=== PATIENT | female | born 1985 ===

== ENCOUNTER 2020-06-23 15:30 | Emergency (ER) | payer MEDICAID, MEDICARE ==
--- NOTE | 2020-06-23 16:38 | CR ---
HISTORY: Pain after fall on ice. COMPARISON: None available. FINDINGS: The right elbow is examined with AP and lateral views. There is no sign of fracture, dislocation, or joint effusion. The soft tissues are normal in appearance without sign of radio-opaque foreign body. No degenerative disease is seen. IMPRESSION: Normal right elbow. Dictated by Patel Tejeda MD @ Jun 23 2020 4:36PM Signed by Dr. Patel Tejeda @ Jun 23 2020 4:37PM
--- NOTE | 2020-06-23 16:40 | CR ---
Indication: Fell on ice, caught self with hand, bent thumb back and wrist. Technique: Right hand 3 views. Comparison: None. Findings: There is a subtle nondisplaced vertically oriented fracture of the ulnar aspect of the distal radius extending to the radiocarpal joint space, only seen on the oblique view. Normal alignment of the wrist. Joint spaces are well preserved. Mild soft tissue swelling about the wrist. Impression: 1. Acute nondisplaced vertically oriented fracture of the distal radius extending to the radiocarpal joint space. 2. Mild soft tissue swelling about the wrist. Dictated by Ava Vernon MD @ Jun 23 2020 4:34PM Signed by Dr. Ava Vernon @ Jun 23 2020 4:37PM
--- NOTE | 2020-06-23 17:04 | EDM.PDOC ---
ED HPI GENERAL MEDICAL PROBLEM - General Chief Complaint: Upper Extremity Injury/Pain Stated Complaint: RT HAND INJURY Time Seen by Provider: 06/23/20 15:44 Source of Information: Reports: Patient History Limitations: Reports: No Limitations - History of Present Illness INITIAL COMMENTS - FREE TEXT/NARRATIVE: HISTORY AND PHYSICAL: History of present illness: Patient is a 35-year-old female who presents to the ED with complaints of right wrist pain. She states she was getting out of her car on Saturday, 5 days ago, when she slipped on the ice and fell backwards onto her right hand. She is here today because her family convinced her to come in for evaluation. She states she was not able to move her fingers or wrist immediately after the fall. However, she states that today she was able to start moving her fingers and thumb more freely/without pain. She denies numbness or tingling to her digits or any part of her hand or wrist. She states she is able to move her wrist but it is painful. She has used Jose E wrap, IcyHot, and ibuprofen for pain. She denies any other trauma, injury, or loss of consciousness with the fall or any other associated symptoms. Patient denies fever, chills, chest pain, shortness of breath, or cough. Denies headache, neck stiff ness, change in vision, syncope, or near syncope. Denies nausea, vomiting, abdominal pain, diarrhea, constipation, or dysuria. Has not noted any blood in urine or stool. Patient has been eating and drinking appropriately. Review of systems: As per history of present illness and below otherwise all systems reviewed and negative. Past medical history: As per history of present illness and as reviewed below otherwise noncontributory. Surgical history: As per history of present illness and as reviewed below otherwise noncontributory. Social history: See social history for further information Family history: As per history of present illness and as reviewed below otherwise noncontributory. Physical exam: General: Patient is alert, oriented, and in no acute distress. Patient sitting comfortably on exam table. Vitals stable and reviewed by me. HEENT: Atraumatic, normocephalic, pupils equal and reactive bilaterally, negative for conjunctival pallor or scleral icterus, mucous membranes moist, TMs normal bilaterally, throat clear, neck supple, nontender, trachea midline. No drooling or trismus noted. No meningeal signs. No hot potato voice noted. Lungs: Clear to auscultation, breath sounds equal bilaterally, chest nontender. Heart: S1S2, regular rate and rhythm without overt murmur Abdomen: Soft, nondistended, nontender. Negative for masses or hepatosplenomegaly. Negative for costovertebral tenderness. Pelvis: Stable nontender. Genitourinary: Deferred. Rectal: Deferred. Skin: Intact, warm, dry. No lesions or rashes noted. Extremities: Moderate swelling noted to the right hand and wrist. Ecchymosis noted to the orona aspect of hand. Full ROM of all digits without deficit, limited ROM of right wrist due to pain. Negative scaphoid tenderness of the RUE. Does have Tenderness to palpation over the distal radius/ulna area. Radial pulse grossly intact with cap refill < 2 seconds of the RUE. Otherwise, negative for cords or calf pain. Neurovascular unremarkable. Neuro: Awake, alert, oriented. Cranial nerves II through XII unremarkable. Cerebellum unremarkable. Motor and sensory unremarkable throughout. Exam nonfocal. Notes: Signs and symptoms that were prompt return to the ED thoroughly discussed with patient. Discussed importance for follow-up with an orthopedic provider. Voices understanding and is agreeable to plan of care. Denies any further questions or concerns at this time. Diagnostics: Hand and wrist XR Therapeutics: Long arm splint and sling-placed by nursing staff-neurovascular status intact post splint placement. Patient has full sensation of all digits with cap refill < 2 seconds of digits after splint placement. [place] and warm fingers of RUE. Prescription: None Impression: Distal radius fracture, non displaced, closed Plan: 1. Rest, ice, elevate the affected extremity. You can apply ice 15 minutes on, 15 minutes off. Keep splint on until orthopedic evaluation. 2. Tylenol and/or Ibuprofen as directed for pain management or discomfort. 3. Follow up with the Orthopedic provider as discussed. Return to the ED as needed and as discussed. Definitive disposition and diagnosis as appropriate pending reevaluation and review of above. Right Wrist Pain Score (Numeric/FACES): 7 - Related Data Allergies Allergy/AdvReac Type Severity Reaction Status Date / Time amoxicillin [From Augmentin] Allergy Other Verified 06/23/20 15:37 clavulanic acid Allergy Other Verified 06/23/20 15:37 [From Augmentin] Home Meds: Home Meds Gabapentin [Neurontin] 300 mg PO TID 06/23/20 [History] Past Medical History HEENT History: Reports: None Cardiovascular History: Reports: None Respiratory History: Reports: None Gastrointestinal History: Reports: None Genitourinary History: Reports: None W[employer]ING [employer] History: Reports: None Musculoskeletal History: Reports: None Neurological History: Reports: None Psychiatric History: Reports: Bipolar Endocrine/Metabolic History: Reports: None Dermatologic History: Reports: None - Infectious Disease History Infectious Disease History: Reports: Hepatitis C Social & Family History - Tobacco Use Tobacco Use Status *Q: Current Every Day Tobacco User Years of Tobacco use: 20 Packs/Tins Daily: 1 - Caffeine Use Caffeine Use: Reports: Coffee, Soda - Recreational Drug Use Recreational Drug Use: No Review of Systems - Review of Systems Review Of Systems: Comprehensive ROS is negative, except as noted in HPI. ED EXAM, GENERAL - Physical Exam Exam: See Below (see dictation) Course - Vital Signs Last Recorded V/S: Last Vital Signs Temp 98.1 F 06/23/20 17:17 Pulse 77 06/23/20 17:17 Resp 16 06/23/20 17:17 BP 112/74 06/23/20 17:17 Pulse Ox 96 06/23/20 17:17 - Orders/Labs/Meds Orders: Active Orders 24 hr Category Date Time Status DME for Discharge [COMM] Stat Oth 06/23/20 17:03 Ordered Departure - Departure Time of Disposition: 17:03 Disposition: Home, Self-Care 01 Clinical Impression: Distal radius fracture, right Qualifiers: Encounter type: initial encounter Fracture type: closed Fracture morphology: unspecified fracture morphology Qualified Code(s): S52.501A - Unspecified fracture of the lower end of right radius, initial encounter for closed fracture - Discharge Information Instructions: Radial Fracture Referrals: Tita Hart PA [Primary Care Provider] - Forms: ED Department Discharge Additional Instructions: The following information is given to patients seen in the emergency department who are being discharged to home. This information is to outline your options for follow-up care. We provide all patients seen in our emergency department with a follow-up referral. The need for follow-up, as well as the timing and circumstances, are variable depending upon the specifics of your emergency department visit. If you don't have a primary care physician on staff, we will provide you with a referral. We always advise you to contact your personal physician following an emergency department visit to inform them of the circumstance of the visit and for follow-up with them and/or the need for any referrals to a consulting specialist. The emergency department will also refer you to a specialist when appropriate. This referral assures that you have the opportunity for follow-up care with a specialist. All of these measure are taken in an effort to provide you with optimal care, which includes your follow-up. Under all circumstances we always encourage you to contact your private physician who remains a resource for coordinating your care. When calling for follow-up care, please make the office aware that this follow-up is from your recent emergency room visit. If for any reason you are refused follow-up, please contact the [facility] at and asked to speak to the emergency department charge nurse. [facility] [address] [place] [id number] [address] [address] [facility] [address] [place] [address], [address] [place] [address] 1. Rest, ice, elevate the affected extremity. You can apply ice 15 minutes on, 15 minutes off. Keep splint on until orthopedic evaluation. 2. Tylenol and/or Ibuprofen as directed for pain management or discomfort. 3. Follow up with the Orthopedic provider as discussed. Return to the ED as needed and as discussed. Sepsis Event Note (ED) - Evaluation Sepsis Screening Result: No Definite Risk - Focused Exam Vital Signs: Vital Signs Temp Pulse Resp BP Pulse Ox 06/23/20 17:17 98.1 F 77 16 112/74 96 06/23/20 15:38 98 F 100 18 113/60 96 - My Orders Last 24 Hours: My Active Orders 06/23/20 17:03 DME for Discharge [COMM] Stat - Assessment/Plan Last 24 Hours: My Active Orders 06/23/20 17:03 DME for Discharge [COMM] Stat
== END 2020-06-23 17:23 | disposition home or self-care (01) ==
LOC: MW.ED 15:30
DX: S52.501A Unspecified fracture of the lower end of right radius, initial encounter for closed fracture (principal); Z88.0 Allergy status to penicillin; Z79.899 Other long term (current) drug therapy; Z72.0 Tobacco use; W00.0XXA Fall on same level due to ice and snow, initial encounter
CPT/HCPCS: 29105; 73070-26-RT; 73070-RT; 73130-26-RT; 73130-RT; 99283; 99283-25